=== PATIENT | female | born 1995 | race Two or more races ===

== ENCOUNTER 2023-01-21 11:57 | Observation (INO) | payer MEDICAID ==
[2023-01-21] MEDS ORDERED: PREN-96 PO (12:08)
== END 2023-01-21 12:53 | disposition home or self-care (01) ==
LOC: UNDOADMOB 11:57 → LDRP 11:57 → UNDODISOB 12:53
PROVIDERS: ADMIT Obstetrics & Gynecology; ATTEND Obstetrics & Gynecology
DX: O62.9 Abnormality of forces of labor, unspecified (principal); Z3A.25 25 weeks gestation of pregnancy
CPT/HCPCS: 59025; 81002; 94760; G0378

== ENCOUNTER 2023-05-05 21:44 | Inpatient (IN) | payer MEDICAID ==
[~2023-05-05] VITALS: Ht 160 cm; Wt 86.2 kg
[~2023-05-05 21:44] MED LIST: PREN-96 PO
[2023-05-05] MEDS ORDERED: PROMETHAZINE HCL 25 MG/ML 1ML IV PRN (22:00)
[2023-05-05] MEDS ORDERED: LIDOCAINE 2%HCL (LOCAL ANESTH.) INJ 20ML MDV IJ PRN (22:00)
[2023-05-05] MEDS ORDERED: BUTORPHANOL TARTRATE 2 MG/1 ML VIAL IV PRN ×2 (22:00)
[2023-05-05 22:25] LABS: Basophils # (auto) 0.1 10 ^3/uL (0-0.2); Eosinophils # (auto) 0.1 10 ^3/uL (0-0.8); Eosinophils % (auto) 1.3 % (0.0-7.0); Hematocrit 39.5 % (36.0-46.0); Hemoglobin 13.4 g/dL (12.2-16.2); Lymphocytes # (auto) 2.3 10 ^3/uL (0.4-5.4); Lymphocytes % (auto) 24.4 % (10.0-50.0); Mean Corpuscular Hemoglobin 30.1 pg (28.0-32.0); Mean Corpuscular Hgb Conc. 33.8 g/dL (32.0-36.0); Mean Corpuscular Volume 88.9 fL (80.0-100.0); Monocytes # (auto) 0.6 10 ^3/uL (0-1.3); Monocytes % (auto) 6.7 % (0.0-12.0); Neutrophils # (auto) 6.2 10 ^3/uL (1.6-8.6); Neutrophils % (auto) 66.6 % (37.0-80.0); Nucleated Red Blood Cells % 0.2 %; Red Blood Cells 4.44 10^6/uL (4.0-5.20); Red Cell Distribution Width 13.7 % (11.8-14.3); White Blood Cell 9.3 10^3/uL (4.4-10.8)
[2023-05-05 22:43] LABS: Albumin 2.8 g/dL (3.4-5.0); Calcium 8.7 mg/dL (8.5-10.1); Potassium 4.2 mmol/L (3.5-5.1)
[2023-05-05 22:44] LABS: INR 0.93 (0.9-1.15); Partial Thromboplastin Time 27.9 SEC (24.5-34.5); Prothrombin Time 9.8 sec (9.3-11.8)
[2023-05-05 22:46] LABS: BUN/Creatinine Ratio 18.3 (10.0-20.0); Bilirubin, Total 0.6 mg/dL (0.2-1.0); Total Protein 6.4 g/dL (6.4-8.2)
[2023-05-05 22:57] LABS: Urine Bacteria NONE SEEN /hpf (None Seen); Urine Blood Negative /uL (Negative); Urine Clarity Clear (Clear); Urine Color Yellow (Yellow); Urine Protein, UAD Negative (Negative); Urine Specific Gravity 1.016 (1.001-1.035); Urine Urobilinogen Normal (Negative); Urine WBC <1 /hpf (0 - 5); Urine pH 6.5 (5.0-8.0)
[2023-05-05 23:14] LABS: Alcohol, Urine < 3.0 mg/dL (0-10); Amphetamine Screen, Urine NEGATIVE (NEGATIVE); Barbiturate Scree,Urine NEGATIVE (NEGATIVE); Benzodiazephine Screen, Urine NEGATIVE (NEGATIVE); Cannabinoid Screen, Urine NEGATIVE (NEGATIVE); Cocaine Screen, Urine NEGATIVE (NEGATIVE); Opiate Scree,Urine NEGATIVE (NEGATIVE); Phencyclidine Screen, Urine NEGATIVE (NEGATIVE)
[2023-05-05] MEDS ORDERED: PENICILLIN G POT 5MIL/D5 50ML 50 ML IV ONE (23:30)
[2023-05-05] MEDS: miSOPROStol 50 MCG per PRE-CUT 1/2 TAB PO PRN (23:46)
[2023-05-05] MEDS: LACTATED RINGER'S 1,000 ML IV SCH (23:47)
[2023-05-06] MEDS ORDERED: miSOPROStol 100 mcg TAB PR PRN
[2023-05-06] MEDS ORDERED: CARBOPROST TROMETHAMINE 250 MCG/1ML VIAL IM PRN
[2023-05-06] MEDS ORDERED: METHYLERGONOVINE MALEATE 0.2 MG/ML AMP IM PRN
[2023-05-06] MEDS: PHISODERM TOP SOLN 240ML BTL TOP PRN ×2 (00:42→15:57)
[2023-05-06] MEDS: DERMOPLAST 60ML BOTTLE TOP PRN ×2 (00:42→15:57)
[2023-05-06] MEDS: WITCH HAZEL-GLYCERIN PAD TOP PRN ×2 (00:42→15:57)
[2023-05-06] MEDS: LACTATED RINGER'S 1,000 ML IV SCH ×2 (03:53→14:15)
[2023-05-06] MEDS: miSOPROStol 50 MCG per PRE-CUT 1/2 TAB PO PRN ×3 (04:06→12:34)
[2023-05-06] MEDS ORDERED: PENICILLIN G POT 5MILLION UNIT VIAL ONE (05:01)
[2023-05-06] MEDS: PENICILLIN G POTASSIUM 2,500,000 UNITS in D5W 5% 50 ML IV SCH ×3 (05:09→13:26)
[2023-05-06] MEDS ORDERED: LACT. RINGERS/OXYTOCIN 20UNITS 500 ML IV ONE ×2 (06:00→06:30)
[2023-05-06] MEDS ORDERED: NALOXONE HCL 0.4 MG/ML VIAL IV ONE (13:15)
[2023-05-06] MEDS ORDERED: ROPIVACAINE HCL 200 ML EPI SCH ×2 (13:15→14:00)
[2023-05-06] MEDS ORDERED: LIDOCAINE HCL 2 %PF INJ 10ML AMP IJ ONE (13:15)
[2023-05-06] MEDS ORDERED: fentaNYL CITRATE 100 MCG/2 ML VL IV ONE (13:15)
[2023-05-06] MEDS ORDERED: ePHEDrine SULFATE 50 MG/ML AMP IV ONE (13:15)
[2023-05-06] MEDS ORDERED: Lidocaine W-Epinephrine 1.5%-1:200,000 INJ 10ml Vial ONE (13:33)
[2023-05-06 17:57] VITALS: BP 122/56; PULSE 64; RESP 18; TEMP 98.6; O2SAT 98
[2023-05-06] MEDS ORDERED: ACETAMINOPHEN 325 MG TAB PO PRN (18:00)
[2023-05-06] MEDS ORDERED: IBUPROFEN 600 MG TAB PO PRN (18:00)
[2023-05-06 19:00] VITALS: BP 126/64; PULSE 62; RESP 18; TEMP 98.9; O2SAT 95
[2023-05-06] MEDS ORDERED: ONDANSETRON ODT 4 MG TAB PO PRN (19:30)
[2023-05-06] MEDS ORDERED: ONDANSETRON HCL 4 MG/2 ML VIAL IV PRN (19:45)
[2023-05-06 23:30] VITALS: BP 117/68; PULSE 61; RESP 18; TEMP 98.3; O2SAT 96
[2023-05-07 03:00] VITALS: BP 100/46; PULSE 53; RESP 18; TEMP 97.9; O2SAT 96
[2023-05-07 05:08] LABS: RPR Non Reactive (Non Reactive)
[2023-05-07 06:38] VITALS: BP 105/62; PULSE 51; RESP 18; TEMP 98; O2SAT 96
[2023-05-07 07:29] LABS: Basophils # (auto) 0 10 ^3/uL (0-0.2); Basophils % (auto) 0.3 % (0.0-2.0); Eosinophils # (auto) 0 10 ^3/uL (0-0.8); Eosinophils % (auto) 0.5 % (0.0-7.0); Hematocrit 37.6 % (36.0-46.0); Hemoglobin 12.7 g/dL (12.2-16.2); Lymphocytes # (auto) 1.6 10 ^3/uL (0.4-5.4); Lymphocytes % (auto) 17.1 % (10.0-50.0); Mean Corpuscular Hemoglobin 30.2 pg (28.0-32.0); Mean Corpuscular Hgb Conc. 33.8 g/dL (32.0-36.0); Mean Corpuscular Volume 89.3 fL (80.0-100.0); Monocytes # (auto) 0.5 10 ^3/uL (0-1.3); Monocytes % (auto) 5.1 % (0.0-12.0); Nucleated Red Blood Cells % 0.1 %; Red Blood Cells 4.21 10^6/uL (4.0-5.20); Red Cell Distribution Width 13.9 % (11.8-14.3); White Blood Cell 9.1 10^3/uL (4.4-10.8)
[2023-05-07] MEDS ORDERED: PREN-96 PO (09:57)
[2023-05-07] MEDS ORDERED: ACET-1882 PO (09:57)
[2023-05-07] MEDS ORDERED: IBU600T PO (09:57)
[2023-05-07 11:00] VITALS: BP 109/70; PULSE 53; RESP 16; TEMP 98.1; O2SAT 98
[2023-05-07 15:10] VITALS: BP 115/80; PULSE 58; RESP 18; TEMP 98.2; O2SAT 98
[2023-05-08 20:06] LABS: Treponema pallidum Ab (FTA-Ab) Non Reactive (Non Reactive)
== END 2023-05-07 18:40 | disposition home or self-care (01) | DRG 560 ==
LOC: LDRP 21:44
PROVIDERS: ADMIT Obstetrics & Gynecology; ATTEND Obstetrics & Gynecology
PROC: 3E0P7VZ Introduction of Hormone into Female Reproductive, Via Natural or Artificial Opening (ICD-10-PCS; 2023-05-05)
PROC: 10E0XZZ Delivery of Products of Conception, External Approach (ICD-10-PCS; principal; 2023-05-06)
PROC: 10907ZC Drainage of Amniotic Fluid, Therapeutic from Products of Conception, Via Natural or Artificial Opening (ICD-10-PCS; 2023-05-06)
PROC: 3E0R3BZ Introduction of Anesthetic Agent into Spinal Canal, Percutaneous Approach (ICD-10-PCS; 2023-05-06)
PROC: 00HU33Z Insertion of Infusion Device into Spinal Canal, Percutaneous Approach (ICD-10-PCS; 2023-05-06)
DX: O24.429 Gestational diabetes mellitus in childbirth, unspecified control (principal); Z37.0 Single live birth; O99.344 Other mental disorders complicating childbirth; F39 Unspecified mood [affective] disorder; Z3A.39 39 weeks gestation of pregnancy
CPT/HCPCS: 36415; 59025; 59409; 62282; 80053; 80307; 81001; 81002; 85025; 85610; 85730; 86592; 86850; 86900; 86901; 94760; 96361; 96365; 96366; 96372; 96374; G0378; J2405; J2540; J2590; J7060